=== PATIENT | female | born 1970 | race Caucasian/White ===

== ENCOUNTER → 2023-05-10 19:37 | Outpatient (REF) | payer OTHER, SELFPAY | LOC: WDC 19:37 | PROVIDERS: ATTENDING PHYSICIAN Nurse Practitioner Family | DX: Z12.31 Encounter for screening mammogram for malignant neoplasm of breast (principal) | CPT/HCPCS: 77063; 77067 ==

== ENCOUNTER → 2024-05-10 18:53 | Outpatient (REF) | payer OTHER, SELFPAY | LOC: WDC 18:53 | PROVIDERS: ATTENDING PHYSICIAN Obstetrics & Gynecology Gynecology; FAMILY PHYSICIAN Nurse Practitioner Family | DX: Z12.31 Encounter for screening mammogram for malignant neoplasm of breast (principal); Z12.39 Encounter for other screening for malignant neoplasm of breast | CPT/HCPCS: 77063; 77067 ==

== ENCOUNTER → 2025-01-19 16:27 | Outpatient (REF) | payer SELFPAY | LOC: RAD 16:27 | PROVIDERS: ATTENDING PHYSICIAN Nurse Practitioner Family | DX: E78.5 Hyperlipidemia, unspecified (principal) | CPT/HCPCS: 75571 ==

== ENCOUNTER → 2025-02-07 06:48 | Outpatient (REF) | payer OTHER, SELFPAY | LOC: RAD 06:48 | PROVIDERS: ATTENDING PHYSICIAN Nurse Practitioner Family; OTHER PHYSICIAN Internal Medicine | DX: R91.1 Solitary pulmonary nodule (principal) | CPT/HCPCS: 71260; Q9967 ==